=== PATIENT | female | born 1935 | race Caucasian/White ===

== ENCOUNTER 2020-01-17 12:34 | Emergency (ER) | payer MEDICARE, SELFPAY ==
--- NOTE | ~2020-01-17 | XR_ITS ---
XR lumbar spine 2-3V DATE: 01/17/2020 14:21 INDICATION: Back pain, sciatica. No known injury. TECHNIQUE: AP, lateral, coned lateral lumbosacral views COMPARISON: None FINDINGS: There is minimal levoscoliosis of the lumbar spine. There is moderate osteopenia. No fracture or bone destruction is detected. The included lower thoracic and lumbar pedicles are inta ct. There is mild degenerative disc disease of the lumbar spine, moderate at L3-4. There is degenerative change at the apophyseal joints, with associated grade 1 anterolisthesis at L3- 4. The sacroiliac joints are intact. There is extensive calcification of the abdominal aorta and common iliac arteries, without apparent a neurysm. IMPRESSION: Moderate osteopenia Minimal levoscoliosis Mild degenerative disc disease, greatest at L3-4 Reviewed, dictated and finalized at location A.
[2020-01-17 12:37] VITALS: BP 143/84; PULSE 67; RESP 18; TEMP 36.7; O2SAT 99
[2020-01-17] MEDS: CYCLOBENZAPRINE HCL 10 MG TABLET PO (13:40)
--- NOTE | 2020-01-17 13:40 | ED.GENADULT ---
HPI - General Adult General Chief complaint: Unspecified Stated complaint: body pain Time Seen by Provider: 01/17/20 13:04 Source: patient History of Present Illness HPI narrative: Patient is a 84 y/o female complaining of low back pain with radiation to left leg pain for last 4 days. She describes her back pain as aching and rates it as 6/10. She state that standing up and moving aggravates her pain. She took Tylenol which did not help much with her pain. She is able to move her legs and walk without assistance. She has no difficulty with urination or bowel movement. Related Data Home Medications Medication Instructions Recorded Confirmed amlodipine 01/17/20 aspirin [Adult Low Dose Aspirin] 01/17/20 atenolol 01/17/20 chlorthalidone 01/17/20 rosuvastatin mg 01/17/20 sitagliptin-metformin [Janumet] tablet 01/17/20 Allergies Allergy/AdvReac Type Severity Reaction Status Date / Time benazepril Allergy Mild Hives Verified 01/17/20 13:35 erythromycin base Allergy Unknown RASH Verified 01/17/20 12:41 tetracycline Allergy Unknown RASH Verified 01/17/20 12:41 Review of Systems Constitutional: Constitutional: Denies chills, Denies fever(s), Denies headache(s) and Denies weakness Eyes: Eyes: Denies blurry vision ENT: Denies headache(s) and Denies neck pain Cardiovascular: Cardiovascular: Denies chest pain and Denies dyspnea Respiratory: Respiratory: Denies cough and Denies dyspnea Gastrointestinal: Gastrointestinal: Denies abdominal pain, Denies diarrhea, Denies nausea and Denies vomiting Genitourinary: Genitourinary: Denies hematuria and Denies dysuria Musculoskeletal: Musculoskeletal: Reports back pain and Denies neck pain Neurologic: Denies headache(s) and Denies weakness REPLACED BY [facility] Social History Social History Gender identity (if verbalized by the patient): Female Exam Const: General: no acute distress and well developed Orientation/consciousness: oriented to person, oriented to place, oriented to time and patient oriented x3 HENMT: Head: normocephalic Ears: external ears normal General nose exam: Normal external nose present Eyes: General: appearance normal, both eyes and all related structures Conjunctivae: conjunctivae normal Neck: Neck: normal visual inspection and full ROM Chest: Chest palpation & inspection: normal inspection of the chest and no tenderness Resp: Effort & Inspection: normal respiratory effort Auscultation: clear to auscultation bilaterally Cardio: Rate: regular rate Rhythm: regular rhythm GI: GI Palp: No abdominal tenderness and Yes Soft to palpation Skin: General skin exam: normal color and turgor normal Neuro: General: oriented to person, oriented to place, oriented to time and patient oriented x3 Cognition (Neuro): normal cognition Extrem: General: normal to inspection, full ROM and no pedal edema Psych: Appearance: grossly normal Mental Status: mental status grossly normal Affect: normal affect Course Reevaluation(s) Reevaluation #1: Rechecked. Patient still has some back pain and left leg pain. Discussed with patient about labs and Xray results. Offered patient possible admission for observation and further evaluation and treatment. Patient declined. Date: 01/17/20 Time: 15:37 Vital Signs Vital signs: Vital Signs Temperature 36.7 C 01/17/20 12:37 Pulse Rate 67 01/17/20 12:37 Respiratory Rate 18 01/17/20 12:37 Blood Pressure 143/84 H 01/17/20 12:37 Pulse Oximetry 99 01/17/20 12:37 Temperature 36.7 C 01/17/20 12:37 Pulse Rate 70 01/17/20 16:20 Respiratory Rate 12 01/17/20 16:20 Blood Pressure 135/70 01/17/20 16:20 Pulse Oximetry 99 01/17/20 16:20 Medical Decision Making Vital Signs Vital Signs: Vital Signs Temperature 36.7 C 01/17/20 12:37 Pulse Rate 67 01/17/20 12:37 Respiratory Rate 18 01/17/20 12:37 Blood Pressure 143/84 H 01/17/20 12:37 Pu
[2020-01-17 13:54] LABS: Basophils Percent Auto 0.3 % (0.2-1.2); Hematocrit 37.7 % (37.0-47.0); Hemoglobin 13.4 g/dL (12.0-15.0); Immature Granulocyte Absolute 0.04 K/mm3 (0.00-0.031); Immature Granulocyte Percent A 0.3 % (0-0.5); Lymphocytes Absolute Auto 1.32 K/mm3 (0.9-3.2); Lymphocytes Percent Auto 11.5 % (18.3-44.2); Mean Corpuscular HGB Conc 35.5 g/dl (32-36); Mean Corpuscular Hemoglobin 30.2 pg (26-34); Mean Corpuscular Volume 84.9 fl (80-100); Mean Platelet Volume 9.7 fl (7.4-10.4); Monocytes Absolute Auto 1.2 K/mm3 (0.1-0.6); Monocytes Percent Auto 10.8 % (2.6-8.5); Neutrophils Absolute Auto 8.9 K/mm3 (1.3-6.7); Neutrophils Percent Auto 77.1 % (45.5-73.1); Platelet Count Result 271 k/mm3 (150-375); Red Blood Count 4.44 M/mm3 (4.2-5.4); Red Cell Distribution Width 13.5 % (11.5-14.5); White Blood Count 11.5 K/mm3 (4.5-10.0)
[2020-01-17 14:04] LABS: Anion Gap 12 mmol/L (8-16); Blood Urea Nitrogen 10 mg/dL (7-17); Carbon Dioxide 31 mmol/L (22-30); Chloride 86 mmol/L (98-107); Estimated CRCL calculation 52 ml/min; Estimated Glomerular Filt Rate > 60; Glucose 115 mg/dL (65-105); Sodium 129 mmol/L (137-145)
[2020-01-17 15:20] VITALS: BP 142/65; PULSE 70; RESP 12; O2SAT 99
[2020-01-17] MEDS: POTASSIUM CHLORIDE 20 MEQ TABLET 40 MEQ PO (15:33)
[2020-01-17 16:20] VITALS: BP 135/70; PULSE 70; RESP 12; O2SAT 99
== END 2020-01-17 16:30 | disposition home or self-care (01) ==
PROVIDERS: Emergency Provider Emergency Medicine; PCP Internal Medicine
DX: M54.42 Lumbago with sciatica, left side (principal); E87.6 Hypokalemia; Z79.82 Long term (current) use of aspirin; M85.88 Other specified disorders of bone density and structure, other site; M51.36 Other intervertebral disc degeneration, lumbar region
CPT/HCPCS: 36415; 72100; 80048; 85025; 99283; A9270

== ENCOUNTER 2025-02-03 12:20 | Outpatient (CLI) | payer MEDICARE, SELFPAY ==
--- NOTE | 2025-02-03 | ECHO_ITS ---
Patient Info Name: Samira Blanton Age: 89 years : 1935 Gender: Female Ht: 64 in Wt: 135 lbs BSA: 1.67 m2 HR: 54 bpm BP: 178 / 87 mmHg Technical Quality: Good Exam Date: 02/03/2025 12:53 PM Patient Status: O Admit Date: 02/03/2025 Exam Type: CA echo doppler color flow Complete two-dimensional, color flow and Doppler transthoracic echocardiogram is performed. 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 Complete two-dimensional, color flow and Doppler transthoracic echocardiogram is performed. 2. There is normal biventricular size and systolic function. 3. There are no significant valvular abnormalities. Left Ventricle The left ventricle is normal in size and systolic function. The left ventricle ejection fraction is estimated to be 60-65%. There is grade 1 diastolic dysfunction. Right Ventricle The right ventricle is normal in size and systolic function. Left Atria The left atrium is normal size. Right Atria The right atrium is normal size. Atrial Septum The atrial septum is normal by color Doppler. Aortic Valve The aortic valve is trileaflet and opens well. There is no aortic regurgitation. Pulmonic Valve The pulmonic valve is grossly normal. There is no pulmonic valve regurgitation. Mitral Valve The mitral valve is sclerotic but opens well. There is trace mitral regurgitation. Tricuspid Valve The tricuspid valve is normal. There is trace tricuspid regurgitation. Pericardium/Pleural Pericardium is normal in appearance with no evidence for significant pericardial effusion. Inferior Vena Cava Inferior vena cava is not well visualized. Aorta The aortic root at the level of the sinus of Valsalva measures 2.9 cm in diameter. Left Ventricular Outflow Tract Name Value Normal LVOT 2D LVOT Diameter 2.1 cm LVOT Doppler LVOT Peak Velocity 107 cm/s LVOT Peak Gradient 5 mmHg LVOT Mean Gradient 3 mmHg LVOT VTI 30 cm LVOT VTI/AV VTI Ratio 0.7 LVOT Stroke Volume 101 ml LVOT CO 6.1 l/min LVOT CI 3.7 l/min/m2 Pulmonic Valve Name Value Normal PV Doppler PV Peak Velocity 86 cm/s PV Peak Gradient 3 mmHg PV Mean Gradient 1 mmHg Mitral Valve Name Value Normal MV Doppler MV Peak Gradient 7 mmHg MV Mean Gradient 2 mmHg MV Area (Cont Eq VTI) 3.3 cm2 MV Diastolic Function MV E Peak Velocity 100 cm/s MV A Peak Velocity 122 cm/s MV E/A 0.8 MV Decel Time (PW) 262 ms MV Annular TDI MV E/e' (Septal) 13.4 MV E/e' (Lateral) 9.5 MV E/e' (Average) 11.4 Tricuspid Valve Name Value Normal TV Regurgitation Doppler TR Peak Velocity 260 cm/s TR Peak Gradient 27 mmHg Estimated PAP/RSVP RA Pressure 10 mmHg <=5 PA Systolic Pressure 37 mmHg <36 RV Systolic Pressure 37 mmHg <36 TV Annular TDI TV Lateral Casandra s' Velocity 14.5 cm/s >=9.5 Aortic Valve Name Value Normal AV Doppler AV Peak Velocity 166 cm/s AV Peak Gradient 11 mmHg AV Mean Gradient 6 mmHg AV VTI 41 cm AV Area (Cont Eq VTI) 2.5 cm2 >=3.0 AV Area (Cont Eq Silvano) 2.2 cm2 AV DI (Silvano) 0.65 AV Regurgitation 2D LVOT Area 3.4 cm2 Ventricles Name Value Normal LV Dimensions 2D/MM IVS Diastolic Thickness (2D) 0.8 cm 0.6-1.0 LVID Diastole (2D) 5.4 cm 3.8-5.2 LVIW Diastolic Thickness (2D) 0.8 cm 0.6-0.9 LVID Systole (2D) 3.5 cm 2.2-3.5 LVOT Diameter 2.1 cm LV Mass (2D Cubed) 155.54 g 67.00-162.00 LV Mass Index (2D Cubed) 93 g/m2 43-95 Relative Wall Thickness (2D) 0.28 <=0.42 LV Fractional Shortening/Ejection Fraction 2D/MM LV Fractional Shortening (2D) 37 % 27-45 LV EF (2D Teichholz) 66 % LV Diastolic Volume (4C MOD) 88 ml LV EF (4C MOD) 63 % LV Diastolic Volume (2C MOD) 96 ml LV EF (2C MOD) 64 % LV Diastolic Volume (BP MOD) 95 ml 46-106 LV Diastolic Volume Index (BP MOD) 57 ml/m2 29-61 LV Systolic Volume (BP MOD) 35 ml 14-42 LV Systolic Volume Index (BP MOD) 21 ml/m2 8-24 LV EF (BP MOD) 64 % 54-74 LV Diastolic Length (4C) 7.5 cm LV Systolic Length (4C) 5.6 cm LV Stroke Volume (4C MOD) 55 ml Atria Name Value Normal LA Dimensions LA Volume (4C A-L) 42 ml LA Volume (BP A-L) 48 ml RA Dimensions RA Systolic [place] Length (4C) 4.8 cm 2.2-2.8 RA Area (4C) 15.1 cm2 <=18.0 Report Signatures
== END 2025-02-03 12:21 | disposition home or self-care (01) ==
PROVIDERS: PCP Internal Medicine; Visit Provider Internal Medicine
DX: R01.1 Cardiac murmur, unspecified (principal)
CPT/HCPCS: 93306